=== PATIENT | male | born 1970 | race Caucasian/White ===

== ENCOUNTER 2021-03-13 10:24 | Inpatient (IN) | payer MEDICAID, SELFPAY ==
[~2021-03-13] VITALS: Ht 172.7 cm; Wt 101.6 kg
[2021-03-13 10:28] VITALS: BP 113/90
--- NOTE | 2021-03-13 10:30 | NUR ---
Patient ambulated to bed 12.
--- NOTE | 2021-03-13 11:16 | NUR ---
50 y/o M BIB self with c/c abscess x 3 months. Patient A&Ox4, ambulatory, reports perirectal abscess that has been recurring to right buttock region; reports pain 7/10, sharp/constant, non-radiating. Patient states recent visits discharged with ABX: Augmentin, Keflex, Bactrim that he been compliant with; states he completed ABX treatment with temporary relief. States Tylenol last night 8PM with minor relief. Denies fever, chills, N/V, recent injury. Chucks in place; pt in gown. Bed locked in lowest position, side rails x 1, call light in reach. PMH: NONE MEDS: NONE ALLERGY: IBUPROFEN
--- NOTE | 2021-03-13 11:40 | NUR ---
Pillow provided per request; pain 0/10 at this time.
--- NOTE | 2021-03-13 12:00 | NUR ---
AMA Shoemaker is evaluating patient at bedside.
[2021-03-13] MEDS ORDERED: NACL 0.9% 500 ML IV SCH (12:15)
--- NOTE | 2021-03-13 12:15 | NUR ---
Patient resting in supine position. property assessment monitor remains in place. Bed locked in lowest position, side rails x 1, call light in reach.
--- NOTE | 2021-03-13 12:27 | NUR ---
Dr. Parry is evaluating patient at bedside.
[2021-03-13] MEDS ORDERED: PIPERACILLIN/TAZOBACTAM 3.375 GM in DEXTROSE 5% 50 ML IV ONE (12:35)
[2021-03-13] MEDS ORDERED: PIPERACILLIN/TAZOBACTAM 3.375 GM VIAL IV ONE (12:40)
[2021-03-13 12:42] LABS: BASOPHILS # (AUTO) 0.3 K/uL (0.00-0.22); BASOPHILS % (AUTO) 2.8 % (0.0-2.0); EOSINOPHILS # (AUTO) 0.3 K/uL (0-0.4); EOSINOPHILS % (AUTO) 2.7 % (0.0-4.0); HEMOGLOBIN 13.8 g/dL (12.0-18.0); LYMPHOCYTES # (AUTO) 2.1 K/uL (2.0-11.5); LYMPHOCYTES % (AUTO) 17.7 % (20.5-51.1); MEAN CORPUSCULAR HEMOGLOBIN 33 pg (27-31); MEAN CORPUSCULAR HGB CONC 34 g/dL (33-37); MEAN CORPUSCULAR VOLUME 98.1 fL (80-94); MONOCYTES % (AUTO) 8.1 % (1.7-9.3); NEUTROPHILS # (AUTO) 8.3 K/uL (1.8-7.7); NEUTROPHILS % (AUTO) 68.7 % (42.2-75.2); PLATELET COUNT (AUTO) 331 K/uL (140-450); RED BLOOD CELL COUNT(AUTO) 4.18 MIL/uL (4.20-6.10); RED CELL DISTRIBUTION WIDTH 13.8 % (11.6-13.7); WHITE BLOOD COUNT (AUTO) 12.1 K/uL (4.8-10.8)
--- NOTE | 2021-03-13 12:55 | NUR ---
CT consent form signature obtained.
--- NOTE | 2021-03-13 13:05 | NUR ---
Perirectal care performed; new pads applied per pt request. All needs met at this time.
[2021-03-13 13:14] LABS: ALBUMIN 3.6 g/dL (3.4-5.0); ANION GAP 13.9 (8-16); CARBON DIOXIDE 24.5 mmol/L (21-32); CREATININE 1.1 mg/dL (0.6-1.3); POTASSIUM 4.4 mmol/L (3.5-5.1); TOTAL BILIRUBIN 0.6 mg/dL (0.0-1.0)
--- NOTE | 2021-03-13 13:30 | NUR ---
Patient resting in supine position. foundry process engineer remains in place. Bed locked in lowest position, side rails x 1, call light in reach.
--- NOTE | 2021-03-13 13:46 | NUR ---
Patient assisted to CT via wheelchair.
[2021-03-13] MEDS ORDERED: NACL 0.9% 2,500 ML IV ONE (13:55)
--- NOTE | 2021-03-13 14:00 | NUR ---
Patient returned from CT via wheelchair, placed back onto color television console monitor and IVF continued.
--- NOTE | 2021-03-13 14:00 | NUR ---
1st 1000mL 0.9% NaCl bolus initiated at 1400.
--- NOTE | 2021-03-13 14:03 | NUR ---
[facility]m vazquez in [facility] - 03/13/21 at 1536 by CHAPITO Patient returned from CT via wheelchair, placed back onto cardiac exercise physiologist and IVF continued.
--- NOTE | 2021-03-13 14:05 | NUR ---
Urine sample collected; 325 mL urine discarded by urinal void.
--- NOTE | 2021-03-13 14:14 | NUR ---
Annika vigil swab and urine sample collected, walked to lab and handed to CPT Wolf.
--- NOTE | 2021-03-13 14:19 | NUR ---
Patient resting on left side in low-fowlers. refrigeration service technician remains in place. VSS. Bed locked in lowest position, side rails x 1, call light in reach.
[2021-03-13 14:32] LABS: BILIRUBIN,URINE NEGATIVE (NEGATIVE); BLOOD, URINE NEGATIVE (NEGATIVE); COLOR,URINE YELLOW (YELLOW); LEUKOCYTE ESTERASE ,URINE NEGATIVE (NEGATIVE); NITRITE, URINE NEGATIVE (NEGATIVE); UGLUCOSE TRACE (NEGATIVE)
[2021-03-13 14:39] LABS: APPEARANCE,URINE CLEAR (CLEAR)
--- NOTE | 2021-03-13 15:13 | NUR ---
Lab at bedside.
--- NOTE | 2021-03-13 15:30 | NUR ---
Patient resting comfortably on right side in semi-fowlers position. hand carver remains in place. RR 24 even/unlabored. Bed locked in lowest position, side rails x 1, call light in reach.
--- NOTE | 2021-03-13 15:43 | NUR ---
Attempted to contact CHARI Flores for report #[id number] extension without answer.
--- NOTE | 2021-03-13 15:54 | NUR ---
Made contact with Sandra via telephone, advised to recontact in 1 minute.
--- NOTE | 2021-03-13 15:58 | NUR ---
Report given to CHARI Flores advised of 5-10 minute ETA.
--- NOTE | 2021-03-13 16:05 | NUR ---
Patient will be admitted to care of Dr. herbert. Admited to Med-Surg. Will go to room 111-A Belongings list completed. Report to Matheus Flores.
[2021-03-13 16:15] VITALS: BP 121/63
--- NOTE | 2021-03-13 16:15 | NUR ---
PATIENT ARRIVED TO UNIT VIA RSANBORN ACCOMPANIED WITH EMT. ASSISTED TO TRANSFER PATIENT FROM [facility] TO BED. POSITIONED PATIENT COMFORTABLY TO LEFT SIDE. PATIENT IS ALERT AND ORIENTED TO NAME, PLACE, TIME, AND DATE ABLE TO MAKE NEED KNOWN AND SPEAKS JAPANESE. RESPIRATION EVEN AND UNLABORED ON ROOM AIR. NO SIGN OF ACUTE DISTRESS NOTED. IV 20G TO AC CLEAN AND INTACT NS RUNNING AT 250 ML/HR. SKIN IS WARM TO TOUCH, CLEAN AND DRY. PATIENT HAS RIGHT BUTTOCK CELLULITIS AND PICTURES TAKEN OF WOUND PER ED NURSE REPORT. PATIENT IS CONTINENT AND ABLE TO AMBULATE. VS TAKEN BP 121/63, RR 18, HR 97, TEMP 97.1, 97% RA. PATIENT DENIED ANY PAIN AT THIS TIME. ORIENTED PATIENT TO HIS ROOM, DEMONSTRATED PATIENT HOW TO USE THE CALL LIGHT, LIGHTS, TV, BED REMOTE. SAFETY MEASURES IN PLACE. BED IN LOW POSITION. CALL LIGHT WITHIN REACH. INSTRUCTED PATIENT TO USE THE CALL LIGHT FOR ANY ASSISTANCE AND PATIENT STATED OK.
--- NOTE | 2021-03-13 18:10 | NUR ---
PATIENT LAYING ON LEFT SIDE. PATIENT DENIES PAIN AT THIS TIME. NO DISTRESS NOTED. WILL CONTINUE TO MONITOR.
[2021-03-13] MEDS ORDERED: SODIUM PHOS / POTASSIUM PHOS 1 PKT PDR PO PRN (18:20)
[2021-03-13] MEDS ORDERED: ACETAMINOPHEN 325 MG TAB PO PRN (18:20)
[2021-03-13] MEDS ORDERED: ONDANSETRON 4 MG/2 ML VIAL IM/IVP PRN (18:20)
[2021-03-13] MEDS: NACL 0.9% 1,000 ML IV SCH (18:20)
[2021-03-13] MEDS ORDERED: MAG SULF 2000 MG/WATER PREMIX 50 ML IV PRN (18:20)
[2021-03-13] MEDS ORDERED: POTASSIUM CHLORIDE 40 MEQ, LIDOCAINE MPF 1% 25 MG in NACL 0.9% 250 ML IV PRN (18:20)
[2021-03-13] MEDS ORDERED: MORPHINE SULFATE 2 MG/ML SYR IVP PRN (18:20)
[2021-03-13] MEDS ORDERED: DEXTROSE 50% 50 ML SYR IVP PRN (18:20)
[2021-03-13] MEDS ORDERED: DOCUSATE SODIUM 100 MG GELCAP PO PRN (18:20)
[2021-03-13 18:34] LABS: MAGNESIUM 1.9 mg/dL (1.8-2.4); PHOSPHORUS 3.4 mg/dL (2.5-4.9)
--- NOTE | 2021-03-13 19:26 | NUR ---
ENDORSED TO [employer] PERSON NURSE FOR CONTINUITY OF CARE. PATIENT STABLE. NO DISTRESS NOTED. ALL SAFETY MEASURES IN PLACE.
[2021-03-13 20:00] VITALS: BP 123/65
--- NOTE | 2021-03-13 20:00 | NUR ---
PATIENT WAS RECEIVED IN BED ON ROOM AIR WITH NO SIGNS OF DISTRESS AT THIS TIME.
[2021-03-13] MEDS: BLOOD GLUCOSE MONITORING 1 DEV DEV FS SCH (20:49)
[2021-03-13] MEDS: INSULIN LISPRO SLIDING SCALE 100 UNITS/ML VIAL SUBQ PRN (20:52)
--- NOTE | 2021-03-13 21:00 | NUR ---
DUE IV MED WAS ADMINISTERED, PATIENT TOLERATED THE INFUSION.
[2021-03-13] MEDS: PIPERACILLIN/TAZOBACTAM 3.375 GM in DEXTROSE 5% 50 ML IV SCH (21:27)
--- NOTE | 2021-03-13 22:00 | NUR ---
WOUND DRESSING WAS CHANGED, TOLERATED WELL BY THE PATIENT, ABD PAD WAS APPLIED SECURED BY TAPES.
--- NOTE | 2021-03-14 00:01 | NUR ---
RN ANSWERED A CALL PATIENT WAS ALERT AND COHERENT DENIES PAIN, NOR DISCOMFORT.
[2021-03-14] MEDS: NACL 0.9% 1,000 ML IV SCH ×2 (01:06→13:54)
--- NOTE | 2021-03-14 03:15 | NUR ---
MISTY. REPORT FROM CHARI PEÑALOZA FOR CONTINUITY OF CARE. PATIENT RESTING IN BED SLEEPING BUT EASILY WAKES UP WHEN NAME CALLED, A/OX4. AMBULATORY TO THE BR. IV OF NS INFUSING ATG 40 ML/HR, RIGHT AC G20. RIGHT BUTTOCKS CELLULITIS WITH SOME SEROSANGUINEOUS DRAINAGE NOTED, REINFORCED DRESSING. ON IV ANTIBIOTIC. DENIES PAIN 0/10.
[2021-03-14 04:00] VITALS: BP 123/53
--- NOTE | 2021-03-14 04:00 | NUR ---
VS STABLE. NO COMPLAINT OF PAIN 0/10.
[2021-03-14] MEDS: PIPERACILLIN/TAZOBACTAM 3.375 GM in DEXTROSE 5% 50 ML IV SCH ×3 (04:48→21:54)
[2021-03-14 06:25] LABS: ANION GAP 11.7 (8-16); BASOPHILS # (AUTO) 0.1 K/uL (0.00-0.22); CARBON DIOXIDE 25.1 mmol/L (21-32); CREATININE 0.9 mg/dL (0.6-1.3); EOSINOPHILS # (AUTO) 0.6 K/uL (0-0.4); EOSINOPHILS % (AUTO) 5.6 % (0.0-4.0); HEMATOCRIT 36.5 % (36-52); HEMOGLOBIN 12.8 g/dL (12.0-18.0); LYMPHOCYTES # (AUTO) 2.5 K/uL (2.0-11.5); LYMPHOCYTES % (AUTO) 25.4 % (20.5-51.1); MEAN CORPUSCULAR HEMOGLOBIN 35 pg (27-31); MEAN CORPUSCULAR HGB CONC 35 g/dL (33-37); MEAN CORPUSCULAR VOLUME 99.5 fL (80-94); MONOCYTES # (AUTO) 0.8 K/uL (0.8-1.0); MONOCYTES % (AUTO) 8.3 % (1.7-9.3); NEUTROPHILS % (AUTO) 59.7 % (42.2-75.2); PLATELET COUNT (AUTO) 298 K/uL (140-450); POTASSIUM 3.8 mmol/L (3.5-5.1); RED BLOOD CELL COUNT(AUTO) 3.67 MIL/uL (4.20-6.10); RED CELL DISTRIBUTION WIDTH 13.8 % (11.6-13.7)
[2021-03-14] MEDS: BLOOD GLUCOSE MONITORING 1 DEV DEV FS SCH ×4 (06:36→21:00)
--- NOTE | 2021-03-14 07:20 | NUR ---
ENDORSED TO AM SHIFT NURSE FOR CONTINUITY OF CARE.
[2021-03-14 08:00] VITALS: BP 124/58
--- NOTE | 2021-03-14 08:45 | NUR ---
Patient already ate about 75% of breakfast. Informed patient of physician order to eat nothing by mouth except medications d/t possible surgery. Patient verbalized understanding and agree with care plan.
[2021-03-14] MEDS: PANTOPRAZOLE 40 MG TABEC PO SCH (09:03)
--- NOTE | 2021-03-14 09:22 | NUR ---
PATIENT HAS BEEN SCREENED AND CATEGORIZED LOW NUTRITION RISK. PATIENT WILL BE SEEN WITHIN 7 DAYS OF ADMISSION. 03/20/[address]
[2021-03-14] MEDS ORDERED: VANCOMYCIN PER PHARMACY MC PRN (09:45)
--- NOTE | 2021-03-14 10:30 | NUR ---
Wound care provided with Dr Dumont at bedside. Old dressing from right buttock abscess removed (moderately saturated with serosanguineous discharge). Site cleansed with NS, pat dry, obtained swab for culture, and covered with gauze and abd pad. Pt tolerated procedure well.
[2021-03-14] MEDS: VANCOMYCIN 1,000 MG in NACL 0.9% 250 ML IV SCH ×2 (11:40→18:45)
[2021-03-14] MEDS: NICOTINE TRANSD SYS 14 MG/24 HR PATCH TD SCH (11:41)
[2021-03-14] MEDS ORDERED: MAG SULF 2000 MG/WATER PREMIX 50 ML IV PRN (12:10)
[2021-03-14] MEDS ORDERED: POTASSIUM CHLORIDE 10 MEQ TABER PO PRN (12:10)
[2021-03-14] MEDS: HYDROcodone/APAP 5/325 MG 1 TAB TAB PO PRN ×2 (13:17→21:50)
[2021-03-14 16:00] VITALS: BP 133/73
--- NOTE | 2021-03-14 19:30 | NUR ---
RECEIVED REPORT FROM JUSTINE RN DAYSHIFT NURSE AT BEDSIDE FOR CONTINUITY OF CARE,PT IN STABLE CONDITION.
[2021-03-14 20:00] VITALS: BP 128/67
--- NOTE | 2021-03-14 20:15 | NUR ---
PT LYING IN BED AOX4 ON ROOM AIR HE HAS A RAC 20 GUAGE RUNNING NORMAL SALINE AT 40MLS/HR. PT LYING ON LEFT SIDE, HE HAS BLEEDING BANDAGE ON RIGHT BUTTOCK. V/S FOLLOWS: T 97.3 P 85 R 20 B/P 128/67 02 97% ON ROOM AIR. ALL UNIVERSAL PRECAUTIONS IN PLACE.
--- NOTE | 2021-03-14 20:30 | NUR ---
SURGEON OH AT BEDSIDE, TO CONSULT WITH PT REGARDING I AND D SURGERY FOR THE AM. QUESTIONS AND CONCERNS ADDRESSED BY SURGEON, PT SIGNED CONSENT FOR SURGERY.
--- NOTE | 2021-03-14 20:45 | NUR ---
MD WEBSTER INFECTIOUS DISEASE AT BEDSIDE FOR CONSULT. QUESTIONS AND CONCERNS ANSWERED BY MD . ALL UNIVERSAL FALLS PRECAUTIONS IN PLACE.
--- NOTE | 2021-03-14 21:00 | NUR ---
DUE HEPARIN WAS HELD DUE TO SURGERY IN THE AM. PT FINGERSTICK IS 194, HE WAS GIVEN 2 UNITS OF HUMALOG PER S/S. ZOSYN 3.375GM WAS HUNG AND RUNNING ORDERED AT 100MLS/HR. ALL UNIVERSAL PRECAUTIONS IN PLACE.
--- NOTE | 2021-03-14 22:00 | NUR ---
PT C/O OF MODERATE PAIN, HE WAS GIVEN 1 TAB OF NORCO 5/325. ALSO WOUND CARE DONE, PT WOUND HAS SOME GROVER BLEEDING AND SEROSANGUINEOUS DRAINAGE. AREA AROUND CELLULITIS AND ABSCESS IS FIRM. WOUND WAS CLEANSED AND REDRESSED.
[2021-03-14] MEDS: INSULIN LISPRO SLIDING SCALE 100 UNITS/ML VIAL SUBQ PRN (22:19)
--- NOTE | 2021-03-14 23:00 | NUR ---
NEW BAG OF NORMAL SALINE HUNG AND RUNNING ORDERED. PT ABLE TO AMBULATE TO TOILET AND BACK. DRESSING ON BUTTOCK DRY AND INTACT. ALL UNIVERSAL PRECAUTIONS IN PLACE.
[2021-03-15] MEDS: NACL 0.9% 1,000 ML IV SCH ×3 (01:19→19:30)
--- NOTE | 2021-03-15 04:00 | NUR ---
PT IN BED RESTING V/S FOLLOWS: T 98.1 P 88 R 20 B/P 127/72 02 97 % ON ROOM AIR. ALL UNIVERSAL FALLS IN PLACE. N/S RUNNING AT 40MLS/HR.
[2021-03-15] MEDS: VANCOMYCIN 1,000 MG in NACL 0.9% 250 ML IV SCH ×3 (04:01→21:10)
--- NOTE | 2021-03-15 05:30 | NUR ---
CRYSTAL HUNG AND RUNNING ORDERED. NO C/O VOICED.
[2021-03-15 06:21] LABS: BASOPHILS # (AUTO) 0.1 K/uL (0.00-0.22); EOSINOPHILS # (AUTO) 0.5 K/uL (0-0.4); EOSINOPHILS % (AUTO) 5.1 % (0.0-4.0); HEMATOCRIT 37.1 % (36-52); HEMOGLOBIN 13.1 g/dL (12.0-18.0); LYMPHOCYTES # (AUTO) 2.3 K/uL (2.0-11.5); LYMPHOCYTES % (AUTO) 22.9 % (20.5-51.1); MEAN CORPUSCULAR HEMOGLOBIN 35 pg (27-31); MEAN CORPUSCULAR HGB CONC 35 g/dL (33-37); MEAN CORPUSCULAR VOLUME 97.8 fL (80-94); MONOCYTES # (AUTO) 0.8 K/uL (0.8-1.0); MONOCYTES % (AUTO) 8.2 % (1.7-9.3); NEUTROPHILS # (AUTO) 6.2 K/uL (1.8-7.7); NEUTROPHILS % (AUTO) 62.8 % (42.2-75.2); PLATELET COUNT (AUTO) 298 K/uL (140-450); RED BLOOD CELL COUNT(AUTO) 3.79 MIL/uL (4.20-6.10); RED CELL DISTRIBUTION WIDTH 13.2 % (11.6-13.7); WHITE BLOOD COUNT (AUTO) 9.8 K/uL (4.8-10.8)
[2021-03-15] MEDS: BLOOD GLUCOSE MONITORING 1 DEV DEV FS SCH ×4 (06:29→21:15)
[2021-03-15] MEDS: PIPERACILLIN/TAZOBACTAM 3.375 GM in DEXTROSE 5% 50 ML IV SCH ×3 (06:30→22:56)
--- NOTE | 2021-03-15 06:30 | NUR ---
FINGERSTICK IS 128 NO HUMALOG COVERAGE NEEDED.
[2021-03-15 06:32] LABS: ANION GAP 11.9 (8-16); CARBON DIOXIDE 25.8 mmol/L (21-32); CREATININE 0.8 mg/dL (0.6-1.3); POTASSIUM 3.7 mmol/L (3.5-5.1)
--- NOTE | 2021-03-15 07:21 | NUR ---
PT ENDORSED BY CORE WINDING OPERATOR NURSE FOR CONTINUITY OF CARE. POC DISCUSSED. PT RESTING IN BED WITH NO SIGNS OF ACUTE DISTRESS. PT ON ROOM AIR WITH CHEST RISING AND FALLING EVEN AND UNLABORED. PT HAS A SACRAL WOUND AND SURGERY SCHEDULED AT 0730. CONSENT AND PREOP CHECKLIST COMPLETED BY CORE WINDING OPERATOR NURSE. VITAL SIGNS WNL. ALL SAFETY MEASURES IN PLACE, CALL LIGHT WITHIN REACH. WILL CONTINUE TO MONITOR.
[2021-03-15] MEDS ORDERED: fentaNYL citrate 0.05 MG/ML VIAL ONE (07:23)
[2021-03-15] MEDS ORDERED: diphenhydrAMINE 50 MG/ML VIAL IVP PRN (07:40)
[2021-03-15] MEDS ORDERED: BLOOD GLUCOSE MONITORING 1 DEV DEV FS ONE (07:40)
[2021-03-15] MEDS ORDERED: ONDANSETRON 4 MG/2 ML VIAL IVP PRN (07:40)
[2021-03-15] MEDS ORDERED: fentaNYL citrate 0.05 MG/ML VIAL IVP PRN (07:40)
[2021-03-15] MEDS ORDERED: MEPERIDINE 25 MG/ML SYR IVP PRN (07:40)
--- NOTE | 2021-03-15 07:41 | NUR ---
PT PICKED UP BY OR NURSES IN [facility]. LAST VITAL SIGNS AND BLOOD SUGAR REPORTED. PT IN STABLE CONDITION.
[2021-03-15] MEDS ORDERED: BUPIVACAINE-MPF/EPI 0.25% 30 ML VIAL INJ ONE (07:49)
[2021-03-15] MEDS ORDERED: LIDOCAINE 1% 500 MG/50 ML VIAL ONE (07:49)
[2021-03-15] MEDS ORDERED: HYDROGEN PEROXIDE 3% 240 ML BTL TP ONE (07:49)
[2021-03-15] MEDS ORDERED: SEVOFLURANE 250 ML BTL INH ONE (07:58)
[2021-03-15 08:00] VITALS: BP 127/72
[2021-03-15] MEDS ORDERED: MEPERIDINE 25 MG/ML SYR ONE (08:18)
[2021-03-15] MEDS: PANTOPRAZOLE 40 MG TABEC PO SCH (08:43)
[2021-03-15] MEDS ORDERED: GLYCOPYRROLATE 0.2 MG/ML VIAL ONE (08:56)
[2021-03-15] MEDS ORDERED: ROCURONIUM 50 MG/5 ML VIAL IV ONE (08:56)
[2021-03-15] MEDS ORDERED: SUCCINYLCHOLINE CHLORIDE 200 MG/10 ML VIAL IVP ONE (08:56)
[2021-03-15] MEDS ORDERED: LIDOCAINE MPF 2% 100 MG/5 ML VIAL INJ ONE (08:56)
[2021-03-15] MEDS ORDERED: PROPOFOL 200 MG/20 ML VIAL IV ONE (08:56)
[2021-03-15] MEDS ORDERED: NEOSTIGMINE 1:1000 10 MG/10 ML VIAL ONE (08:57)
[2021-03-15] MEDS: NICOTINE TRANSD SYS 14 MG/24 HR PATCH TD SCH ×4 (09:00→15:03)
[2021-03-15] MEDS ORDERED: HYDROcodone/APAP 5/325 MG 1 TAB TAB PO PRN (09:30)
[2021-03-15] MEDS ORDERED: ONDANSETRON 4 MG/2 ML VIAL IV PRN (09:30)
[2021-03-15] MEDS ORDERED: MORPHINE SULFATE 4 MG/ML SYR IV PRN (09:30)
[2021-03-15] MEDS ORDERED: MORPHINE SULFATE 2 MG/ML SYR IVP PRN (09:30)
--- NOTE | 2021-03-15 09:45 | NUR ---
PT RETURNED FROM OR ON [facility] IN STABLE CONDITION. PT SACRAL DRESSING IS INTACT, WITH MINIMAL BLOOD. PT REQUESTED CHICKEN BROTH AND SUGAR FREE JELLO. PT VITAL SIGNS 140/66, 77, 98%, 18, 97.3. PT RATED PAIN 6/10, WILL MEDICATED PER MD ORDER. ALL SAFETY MEASURES IN PLACE, CALL LIGHT WITHIN REACH. WILL CONTINUE TO MONITOR.
--- NOTE | 2021-03-15 10:05 | NUR ---
PT COMPLAINED OF PAIN 6/10 MEDICATED PER MD ORDER. PT EDUCATION PROVIDED. PT VERBALIZED UNDERSTANDING. ALL SAFETY MEASURES IN PLACE, CALL LIGHT WITHIN REACH. WILL CONTINUE TO MONITOR.
--- NOTE | 2021-03-15 11:26 | NUR ---
PHARMACY CALLED, HOLD VANCO UNTIL VANCO TROUGH IS DRAWN. LAB IS BACKED UP. WILL HANG VANCO AFTER LAB IS DRAWN.
--- NOTE | 2021-03-15 12:00 | NUR ---
JEREMY TROUGH DRAWN, JEREMY PALACIOS. PT IS STABLE
--- NOTE | 2021-03-15 13:34 | NUR ---
DC PLANNING: PT HAS ORDER FOR VISITING NURSE HOME HEALTH, PT HAS [facility], AND UN ABLE TO FIND HOME HEALTH. CALLED [facility], SPOKE WITH KATARZYNA STATED IT WILL BE COVERED WITH [facility] JUST TO FAX AND WILL CONTACT THE PATIENT. OTHER POPE IF NOT COVERED INITIAL VISIT WILL BE 125$ AND 90$ FOR EACH VISIT. SPOKE WITH PATIENT STATED HE HAS NO ONE TO HELP HIM ,HE WILL TRY TO DO IT BY HIMSELF ,IF NOT WILL PAY. CM TO FOLLOW
--- NOTE | 2021-03-15 13:38 | NUR ---
ABElio PALACIOS, PT IS STABLE. CALL LIGHT WITHIN REACH. SAFETY MEASURES IN PLACE. WILL CONTINUE TO MONITOR.
--- NOTE | 2021-03-15 14:12 | NUR ---
DRESSING ASSESSED, AREA SURROUNDING DRESSING CLEANED. DRESSING FROM SURGEON REINFORCED WITH 4X4 GAUZE AND TAPE. PT CLEANED UP. PT IN STABLE CONDITION STATED THAT THE PAIN IS STILL TOLERABLE. ALL SAFETY MEASURES IN PLACE, CALL LIGHT WITHIN REACH.WILL CONTINUE TO MONITOR.
[2021-03-15 16:00] VITALS: BP 112/59
[2021-03-15] MEDS: INSULIN LISPRO SLIDING SCALE 100 UNITS/ML VIAL SUBQ PRN ×2 (16:19→21:16)
[2021-03-15] MEDS: metFORMIN 850 MG TAB PO SCH (16:24)
--- NOTE | 2021-03-15 16:29 | NUR ---
BLOOD GLUCOSE IS 188, 2 UNITS OF INSULIN COVERAGE. ISHA MEDICATION ADMINISTRATION. PT EDUCATION PROVIDED. EDUCATED ON S/S OF HYPOGLYCEMIA. PT VERBALIZED UNDERSTANDING. ALL QUESTIONS ANSWERED. PT IS RESTING WITH NO S/S OF ACUTE DISTRESS. CALL LIGHT WITHIN REACH. WILL CONTINUE TO MONITOR.
--- NOTE | 2021-03-15 17:35 | NUR ---
PT IS STABLE IN BED WITH NO SIGNS OF ACUTE DISTRESS, ALL SAFETY MEASURES IN PLACE. CALL LIGHT WITHIN REACH. WILL CONTINUE TO MONITOR.
--- NOTE | 2021-03-15 18:41 | NUR ---
PT ASLEEP IN BED WITH NO S/S OF ACUTE DISTRESS. ALL SAFETY MEASURES IN PLACE, CALL LIGHT WITHIN REACH. WILL CONTINUE TO MONITOR.
--- NOTE | 2021-03-15 19:06 | NUR ---
PT ENDORSED TO AIRBRUSH PAINTER NURSE FOR CONTINUITY OF CARE. POC DISCUSSED
--- NOTE | 2021-03-15 19:07 | NUR ---
RECEIVED PATIENT FROM AM NURSE FOR CONTINUITY OF CARE. PATIENT IS RESTING IN BED, A/A/O X4. RESPIRATORY EVEN AND UNLABORED, ON ROOM AIR, NO SIGN OF DISTRESS NOTED. SKIN WARM, DRY, NON DIAPHORETIC. INCISION AND DRAINAGE OF THE RIGHT BUTTOCK PERIANAL ABSCESS ON 03/15/2021, WOUND IS PACKED AND DRESSED, DRESSING IS INTACT, CLEAN AND DRY. IV ON RIGHT AC 20G, INTACT AND PATENT, IS INFUSING FLUID ORDER. PATIENT DENIES ANY PAIN OR DISCOMFORT AT THIS TIME. ABLE TO MAKE NEED KNOWN. PLAN OF CARE DISCUSSED, PATIENT VERBALIZED UNDERSTANDING. CALL LIGHT WITHIN REACH. WILL CONTINUE TO MONITOR.
[2021-03-15 20:00] VITALS: BP 109/67
--- NOTE | 2021-03-15 21:15 | NUR ---
BLOOD SUGAR CHECK 179, 2UNITS INSULIN GIVEN WITH EDUCATION. PATIENT VERBALIZED UNDERSTANDING. VANCOMYCIN IVPB GIVEN LATE DUE TO PREVIOUS DOSE WAS GIVEN LATE PER AM NURSE. PATIENT TOLERATED WELL. CALL LIGHT WITHIN REACH. WILL CONTINUE TO MONITOR.
--- NOTE | 2021-03-15 22:09 | NUR ---
PATIENT COMPLAINS PAIN 7/10 ON HIS SURGICAL WOUND OF RIGHT BUTTOCK/PERIANAL. PRN MEDICATION GIVEN WITH EDUCATION. PATIENT VERBALIZED UNDERSTANDING. PATIENT TOLERATED WELL. CALL LIGHT WITHIN REACH. WILL CONTINUE TO MONITOR.
--- NOTE | 2021-03-15 23:09 | NUR ---
PAIN REASSESSMENT. PATIENT IS SLEEPING, CHEST RISE AND FALL, NO SIGN OF DISTRESS NOTED. CALL LIGHT WITHIN REACH. WILL CONTINUE TO MONITOR.
--- NOTE | 2021-03-16 03:04 | NUR ---
WOUND CARE IN RIGHT BUTTOCK/PERIANAL. DRESSING INTACT, CLEAN AND MINIMAL DRAINAGE NOTED. PATIENT DENIES ANY PAIN AT THIS TIME. DAILY PACKING WOUND WITH 4X4 GAUZE START POD#2. EDUCATE PATIENT HYGIENE, PATIENT VERBALIZED UNDERSTANDING. NO SIGN OF DISTRESS NOTED. CALL LIGHT WITHIN REACH. WILL CONTINUE TO MONITOR.
[2021-03-16 04:00] VITALS: BP 120/67
--- NOTE | 2021-03-16 04:00 | NUR ---
VITAL SIGN WITHIN NORMAL LIMIT. PATIENT IS RESTING IN BED, AROUSABLE TO VOICE. NO SIGN OF DISTRESS NOTED. CALL LIGHT WITHIN REACH. WILL CONTINUE TO MONITOR.
[2021-03-16] MEDS: VANCOMYCIN 1,000 MG in NACL 0.9% 250 ML IV SCH (04:19)
[2021-03-16] MEDS: NACL 0.9% 1,000 ML IV SCH ×2 (05:09→18:37)
--- NOTE | 2021-03-16 06:00 | NUR ---
SCHEDULE ANTIBIOTIC GIVEN WITH EDUCATION. PATIENT VERBALIZED UNDERSTANDING. NO SIGN OF DISTRESS NOTED. CALL LIGHT WITHIN REACH. WILL CONTINUE TO MONITOR.
[2021-03-16 06:10] LABS: BASOPHILS # (AUTO) 0.1 K/uL (0.00-0.22); BASOPHILS % (AUTO) 0.8 % (0.0-2.0); EOSINOPHILS # (AUTO) 0.4 K/uL (0-0.4); EOSINOPHILS % (AUTO) 4.3 % (0.0-4.0); HEMATOCRIT 35.3 % (36-52); HEMOGLOBIN 12.1 g/dL (12.0-18.0); LYMPHOCYTES # (AUTO) 2.6 K/uL (2.0-11.5); LYMPHOCYTES % (AUTO) 26.3 % (20.5-51.1); MEAN CORPUSCULAR HEMOGLOBIN 34 pg (27-31); MEAN CORPUSCULAR HGB CONC 34 g/dL (33-37); MEAN CORPUSCULAR VOLUME 99.8 fL (80-94); MONOCYTES # (AUTO) 0.8 K/uL (0.8-1.0); MONOCYTES % (AUTO) 8.2 % (1.7-9.3); NEUTROPHILS % (AUTO) 60.4 % (42.2-75.2); PLATELET COUNT (AUTO) 313 K/uL (140-450); RED BLOOD CELL COUNT(AUTO) 3.54 MIL/uL (4.20-6.10); RED CELL DISTRIBUTION WIDTH 13.4 % (11.6-13.7); WHITE BLOOD COUNT (AUTO) 9.9 K/uL (4.8-10.8)
[2021-03-16] MEDS: PIPERACILLIN/TAZOBACTAM 3.375 GM in DEXTROSE 5% 50 ML IV SCH ×2 (06:13→12:51)
[2021-03-16] MEDS: BLOOD GLUCOSE MONITORING 1 DEV DEV FS SCH ×4 (06:31→21:00)
--- NOTE | 2021-03-16 06:31 | NUR ---
BLOOD SUGAR CHECK 132, NO INSULIN GIVEN TO COVER. PATIENT IS STABLE. NO SIGN OF DISTRESS. CALL LIGHT WITHIN REACH. WILL CONTINUE TO MONITOR.
[2021-03-16 07:08] LABS: ANION GAP 9.1 (8-16); CARBON DIOXIDE 27.5 mmol/L (21-32); CREATININE 1.2 mg/dL (0.6-1.3); POTASSIUM 3.6 mmol/L (3.5-5.1)
--- NOTE | 2021-03-16 07:15 | NUR ---
ENDORSED PATIENT TO AM NURSE FOR CONTINUITY OF CARE. PATIENT STABLE.
--- NOTE | 2021-03-16 07:15 | NUR ---
RECEIVED BEDSIDE REPORT FROM STORAGE ADMINISTRATOR NURSE. PATIENT IS ASLEEP RESPIRATION EVEN UNLABORED ON ROOM AIR. NO DISTRESS NOTED. SKIN IS WARM AND DRY. WOUND DRESSING NOTED WITH DRAINAGE. IV PATENT AND INTACT. PLAN OF CARE WAS DISCUSSED, ALL SAFETY MEASURES IN PLACE. BED IS AT LOW POSITION. CALL LIGHT WITHIN REACH WILL CONTINUE TO MONITOR.
[2021-03-16] MEDS: metFORMIN 850 MG TAB PO SCH ×2 (08:17→17:02)
[2021-03-16] MEDS: PANTOPRAZOLE 40 MG TABEC PO SCH (08:17)
--- NOTE | 2021-03-16 08:25 | NUR ---
ALL SCHEDULED MEDS WERE GIVEN PER ORDER. PATIENT WANTS ONE OF THE BEDSIDE RAILS DOWN, EDUCATED REGARDING THE PURPOSE OF SIDE RAILS, PT VERBALIZES UNDERSTANDING BUT STILL REFUSED X2. WILL CONTINUE TO MONITOR
[2021-03-16] MEDS: LACTATED RINGERS 1,000 ML IV SCH ×2 (08:40→17:00)
[2021-03-16] MEDS: INSULIN LISPRO SLIDING SCALE 100 UNITS/ML VIAL SUBQ PRN (11:41)
--- NOTE | 2021-03-16 11:58 | NUR ---
PATIENT COMPLAINS OF RIGHT BUTTOCK PAIN 11/15. OFFERED NORCO PER PATIENT NORCO DOESN'T WORK WELL FOR HIM. PRN MORPHINE 2MG GIVEN PER ORDER. WILL CONTINUE TO MONITOR
--- NOTE | 2021-03-16 13:00 | NUR ---
DRAINAGE NOTED ON THE WOUND DRESSING, APPLIED REINFORCEMENT.
--- NOTE | 2021-03-16 15:09 | NUR ---
CHECKED ON PATIENT. PATIENT IS AWAKE, WATCHING TV, NO DISTRESS NOTED. WILL CONTINUE TO MONITOR
[2021-03-16 16:00] VITALS: BP 119/75
[2021-03-16] MEDS ORDERED: VANCOMYCIN 1,000 MG in NACL 0.9% 250 ML IV SCH (16:00)
--- NOTE | 2021-03-16 16:30 | NUR ---
CHECKED ON PATIENT BLOOD SUGAR. PT BLOOD SUGAR 146 NO INSULIN NEEDED AT THIS TIME
--- NOTE | 2021-03-16 17:00 | NUR ---
SCHEDULED MEDS GIVEN PER ORDER, WILL CONTINUE TO MONITOR
--- NOTE | 2021-03-16 19:30 | NUR ---
RECEIVED REPORT FROM ALPA RN DAYSHIFT NURSE AT BEDSIDE FOR CONTINUITY OF CARE, PT IN STABLE CONDITION.
--- NOTE | 2021-03-16 19:32 | NUR ---
ENDORSED PATIENT TO SKELP PROCESSOR NURSE FOR CONTINUITY OF CARE
[2021-03-16 20:00] VITALS: BP 113/64
--- NOTE | 2021-03-16 20:00 | NUR ---
PT LYING IN BED ON LEFT SIDE, HE HAS A R HAND 22 GUAGE RUNNING NORMAL SALINE AT 100MLS/HR. PT HAS DRESSING ON RIGHT BUTTOCK WITH MODERATE AMOUNT OF SEROSANGUINEOUS DRAINAGE. WILL CHANGE DRESSING LATER ACCORDING TO ORDER. PT DENIES PAIN AT THIS TIME. ALL UNIVERSAL FALLS PRECAUTIONS IN PLACE. V/S FOLLOWS: T 98.2 P 80 R 20 B/P 122/71 02 20.
--- NOTE | 2021-03-16 21:30 | NUR ---
PT GIVEN DUE MEDS OF HEPARIN SQ, EDUCATION REGARDING MEDICATION AND SIDE EFFECTS PROVIDED . PT VERBALIZED UNDERSTANDING. PT ALSO GIVEN ORDERED, ZOSYN HUNG AND RUNNING ORDERED. EDUCTION REGARDING MEDICATION REINFORCED, AGAIN PT VERBALIZED UNDERSTANDING. PT FINGERSTICK IS 140, NO HUMALOG COVERAGE NEEDED, EDUCATION REGARDING DIABETES PROVIDED. PT VERBALIZED UNDERSTANDING. ALL UNIVERSAL PRECAUTIONS IN PLACE.
[2021-03-17] MEDS: LACTATED RINGERS 1,000 ML IV SCH ×3 (01:20→18:00)
--- NOTE | 2021-03-17 02:00 | NUR ---
ROUNDS DONE PT IN BED NORMAL SALINE RUNNING ORDERED. ALL ORDERED PRECAUTIONS IN PLACE.
[2021-03-17] MEDS: PIPERACILLIN/TAZOBACTAM 3.375 GM in DEXTROSE 5% 50 ML IV SCH ×4 (03:13→21:38)
[2021-03-17] MEDS: NACL 0.9% 1,000 ML IV SCH ×3 (03:14→21:03)
[2021-03-17 04:00] VITALS: BP 122/71
[2021-03-17] MEDS: HYDROmorphone 1 MG/ML AMP IVP PRN (06:22)
[2021-03-17] MEDS: BLOOD GLUCOSE MONITORING 1 DEV DEV FS SCH ×4 (06:59→21:54)
[2021-03-17 07:09] VITALS: BP 118/68
[2021-03-17 07:27] LABS: BASOPHILS # (AUTO) 0.1 K/uL (0.00-0.22); BASOPHILS % (AUTO) 1.1 % (0.0-2.0); EOSINOPHILS # (AUTO) 0.7 K/uL (0-0.4); HEMATOCRIT 33.1 % (36-52); HEMOGLOBIN 11.5 g/dL (12.0-18.0); LYMPHOCYTES # (AUTO) 2.2 K/uL (2.0-11.5); LYMPHOCYTES % (AUTO) 25.9 % (20.5-51.1); MEAN CORPUSCULAR HEMOGLOBIN 34 pg (27-31); MEAN CORPUSCULAR HGB CONC 35 g/dL (33-37); MEAN CORPUSCULAR VOLUME 98.3 fL (80-94); MONOCYTES # (AUTO) 0.7 K/uL (0.8-1.0); MONOCYTES % (AUTO) 8.5 % (1.7-9.3); NEUTROPHILS # (AUTO) 4.8 K/uL (1.8-7.7); NEUTROPHILS % (AUTO) 56.5 % (42.2-75.2); PLATELET COUNT (AUTO) 285 K/uL (140-450); RED BLOOD CELL COUNT(AUTO) 3.36 MIL/uL (4.20-6.10); RED CELL DISTRIBUTION WIDTH 13.6 % (11.6-13.7); WHITE BLOOD COUNT (AUTO) 8.6 K/uL (4.8-10.8)
[2021-03-17 07:32] LABS: ANION GAP 9.4 (8-16); CARBON DIOXIDE 26.4 mmol/L (21-32); CREATININE 1.2 mg/dL (0.6-1.3); POTASSIUM 3.8 mmol/L (3.5-5.1)
[2021-03-17] MEDS: PANTOPRAZOLE 40 MG TABEC PO SCH (09:11)
[2021-03-17] MEDS: metFORMIN 850 MG TAB PO SCH ×2 (09:11→16:25)
[2021-03-17] MEDS: NICOTINE TRANSD SYS 14 MG/24 HR PATCH TD SCH (09:12)
[2021-03-17 10:02] VITALS: BP 115/49
[2021-03-17] MEDS: INSULIN LISPRO SLIDING SCALE 100 UNITS/ML VIAL SUBQ PRN ×2 (11:57→21:54)
[2021-03-17 16:53] VITALS: BP 124/76
--- NOTE | 2021-03-17 20:00 | NUR ---
PATIENT WAS RECEIVED IN BED AWAKE AND ALERT WITH NO S/S OF ACUTE DISTRESS AT THIS TIME.
--- NOTE | 2021-03-17 21:00 | NUR ---
DUE IV MEDICATION AND SQ HEPARIN INJECTION WAS GIVEN, BS WAS CHECKED =161 MG/DL, UNITS REGU;AR INSULIN WAS GIVEN SQ TOLERATED WELL BY THE PATIENT.
--- NOTE | 2021-03-17 22:00 | NUR ---
WOUND DRESSING WAS CHANGED WITH MINIMAL BLOODY DRAINAGE.
--- NOTE | 2021-03-17 23:30 | NUR ---
PATIENT WOUND DRESSING WAS CHANGED WITH BLOODY DISCHARGES MINIMAL AMOUNT, PRESSURE DRESSING WAS APPLIED ASEPTICALLY.
[2021-03-17 23:51] VITALS: BP 109/109
--- NOTE | 2021-03-18 00:24 | NUR ---
PATIENT MADE HIS MIDNIGHT ROUNDING PATIENT WAS CALMLY ASLEEP
[2021-03-18] MEDS: LACTATED RINGERS 1,000 ML IV SCH ×3 (02:20→19:00)
[2021-03-18] MEDS: PIPERACILLIN/TAZOBACTAM 3.375 GM in DEXTROSE 5% 50 ML IV SCH ×3 (04:16→22:54)
--- NOTE | 2021-03-18 05:00 | NUR ---
ZOSYN IV ATB WAS GIVEN 40 MINUTES EARLY THAN DUE TIME, TOLERATED WELL
--- NOTE | 2021-03-18 05:00 | NUR ---
PATIENT C/O PAIN 05/18, MEDICATED WITH DILAUDID 1 MG IV PUSH, TOLERATED WELL BY THE PATIENT, V/S WAS TAKEN WNL.
[2021-03-18] MEDS: HYDROmorphone 1 MG/ML AMP IVP PRN ×2 (06:04→10:32)
[2021-03-18] MEDS: BLOOD GLUCOSE MONITORING 1 DEV DEV FS SCH ×4 (06:22→21:00)
--- NOTE | 2021-03-18 06:25 | NUR ---
BS= 102 MG/DL NO INSULIN COVERAGE NEEDED.
[2021-03-18 07:08] LABS: BASOPHILS # (AUTO) 0.1 K/uL (0.00-0.22); EOSINOPHILS # (AUTO) 0.6 K/uL (0-0.4); EOSINOPHILS % (AUTO) 7.6 % (0.0-4.0); HEMATOCRIT 31.9 % (36-52); HEMOGLOBIN 11.1 g/dL (12.0-18.0); LYMPHOCYTES # (AUTO) 2.5 K/uL (2.0-11.5); LYMPHOCYTES % (AUTO) 31.9 % (20.5-51.1); MEAN CORPUSCULAR HEMOGLOBIN 34 pg (27-31); MEAN CORPUSCULAR HGB CONC 35 g/dL (33-37); MEAN CORPUSCULAR VOLUME 99.4 fL (80-94); MONOCYTES # (AUTO) 0.7 K/uL (0.8-1.0); MONOCYTES % (AUTO) 8.5 % (1.7-9.3); PLATELET COUNT (AUTO) 300 K/uL (140-450); RED BLOOD CELL COUNT(AUTO) 3.21 MIL/uL (4.20-6.10); RED CELL DISTRIBUTION WIDTH 13.5 % (11.6-13.7); WHITE BLOOD COUNT (AUTO) 7.9 K/uL (4.8-10.8)
--- NOTE | 2021-03-18 07:12 | NUR ---
REPORTS WERE ALL GIVEN, TRANSFER OF CARE ENDORSED.
--- NOTE | 2021-03-18 07:15 | NUR ---
RECEIVED BEDSIDE REPORT FROM BROOM MACHINE OPERATOR NURSE. PATIENT IS ASLEEP RESPIRATION EVEN UNLABORED ON ROOM AIR. NO DISTRESS NOTED. SKIN IS WARM AND DRY. WOUND DRESSING NOTED WITH DRAINAGE. PATIENT REQUESTED DRESSING TO BE CHANGE. WILL CHANGE AFTER REPORT. IV PATENT AND INTACT. PLAN OF CARE WAS DISCUSSED, ALL SAFETY MEASURES IN PLACE. BED IS AT LOW POSITION. CALL LIGHT WITHIN REACH WILL CONTINUE TO MONITOR.
[2021-03-18 07:21] LABS: ANION GAP 12.8 (8-16); CARBON DIOXIDE 26.8 mmol/L (21-32); CREATININE 1.1 mg/dL (0.6-1.3); POTASSIUM 3.6 mmol/L (3.5-5.1)
[2021-03-18 08:00] VITALS: BP 127/70
[2021-03-18] MEDS: NACL 0.9% 1,000 ML IV SCH ×2 (08:26→16:38)
[2021-03-18] MEDS: NICOTINE TRANSD SYS 14 MG/24 HR PATCH TD SCH (09:00)
[2021-03-18] MEDS: PANTOPRAZOLE 40 MG TABEC PO SCH (09:07)
[2021-03-18] MEDS: metFORMIN 850 MG TAB PO SCH ×2 (09:07→16:39)
--- NOTE | 2021-03-18 09:33 | NUR ---
PATIENT REFUSED SCHEDULED NICOTINE PATCH. COULD NOT REASSESS LAST NICOTINE PATCH SINCE IT WAS NOT PLACED ON RIGHT ARM IT WAS COMMENTED ON LAST ADMINISTRATION. PATIENT STATED THAT HE DID NOT RECEIVE THE PATCH YESTERDAY.
--- NOTE | 2021-03-18 11:55 | NUR ---
BLOOD GLUCOSE CHECK IS 122. NO INSULIN COVERAGE NEEDED.
--- NOTE | 2021-03-18 13:30 | NUR ---
MEDICATED PATIENT WITH PAIN MED BEFORE CHANGING DRESSING. PACKED WOUND WITH NEW DRESSING AND COVERED WITH ABDOMINAL PAD. KEPT PATIENT DRY AND CLEAN. PT TOLERATED TREATMENT
--- NOTE | 2021-03-18 13:51 | NUR ---
ALL SCHEDULED MEDS GIVEN. PT IS STABLE. NO DISTRESS NOTED. WILL CONTINUE TO MONITOR.
--- NOTE | 2021-03-18 15:00 | NUR ---
CHECKED ON PATIENT. PATIENT IS STABLE. NO DISTRESS NOTED AND DENIES PAIN AT THE MOMENT. WILL CONTINUE TO MONITOR.
[2021-03-18 16:00] VITALS: BP 112/69
--- NOTE | 2021-03-18 16:42 | NUR ---
BLOOD GLUCOSE CHECK IS 101. NO INSULIN COVERAGE NEEDED.
--- NOTE | 2021-03-18 17:15 | NUR ---
CHECKED ON PATIENT. PATIENT IS STABLE. NO DISTRESS NOTED AND DENIES PAIN AT THE MOMENT. WILL CONTINUE TO MONITOR.
--- NOTE | 2021-03-18 19:08 | NUR ---
ENDORSED TO IT SYSTEMS ANALYST NURSE FOR CONTINUITY OF CARE. PT IS STABLE.
--- NOTE | 2021-03-18 20:00 | NUR ---
RECEIVED PATIENT AWAKE AND COHERENT STANDING BY HIS IV POLE JUST USED THE BATHROOM TO PEE, REPORTED CLEAR YELLOW URINE WITH NORMAL/ADEQUATE AMOUNT, DENIES DISCOMFORT ON VOIDING.
--- NOTE | 2021-03-18 21:00 | NUR ---
PATIENT C/O PAIN 01/15, MEDICATED WITH NORCO 5/325 MG/TAB, HEPARIN 5,000 SQ INJECTION WAS GIVEN BS= 135 MG/DL NEED NO INSULIN COVERAGE. NOTED
--- NOTE | 2021-03-18 21:30 | NUR ---
ZOSYN 3.375 IV WAS GIVEN PIGGY BACK, INFUSING WELL, TOLERATED WELL BY THE PATIENT
--- NOTE | 2021-03-18 22:00 | NUR ---
PATIENT WAS IN BED TRYING T GET TO SLEEP, DENIES ANY PAIN AT THIS TIME.
[2021-03-18] MEDS: HYDROcodone/APAP 5/325 MG 1 TAB TAB PO PRN (22:30)
[2021-03-19] VITALS: BP 110/69
--- NOTE | 2021-03-19 | NUR ---
PATIENT WAS IN BED ASLEEP, NO S/S OF DISTRESS.
[2021-03-19] MEDS: NACL 0.9% 1,000 ML IV SCH (02:30)
--- NOTE | 2021-03-19 02:30 | NUR ---
IV HYDRATION NSS AT 100 ML/HOUR, BAG WAS REPLACED WITH A NEW ONE SAME RATE, INFUSING WELL, TOLERATED BY THE PATIENT WELL
[2021-03-19] MEDS: LACTATED RINGERS 1,000 ML IV SCH (03:20)
[2021-03-19] MEDS: PIPERACILLIN/TAZOBACTAM 3.375 GM in DEXTROSE 5% 50 ML IV SCH (04:34)
[2021-03-19] MEDS: BLOOD GLUCOSE MONITORING 1 DEV DEV FS SCH (07:22)
--- NOTE | 2021-03-19 07:26 | NUR ---
ALL REPORTS WERE GIVEN, TRANSFER OF CARE ENDORSED.
[2021-03-19] MEDS: NICOTINE TRANSD SYS 14 MG/24 HR PATCH TD SCH (09:00)
--- NOTE | 2021-03-19 09:30 | NUR ---
WOUND CARE EVALUATION NOTE: S/P I&D RIGHT BUTTOCK WOUND ASSESSMENT AND WOUND CARE TEACHING DONE TO THIS 50 Y/O MALE. PT IS AAX4. PER PT. HE ALREADY HAS APPOINTMENT MADE STARTING TOMORROW AT [facility] FOR DAILY WOUND CARE. POC DISCUSSED WITH PRIMARY RN, PT AND DR. JAMES. PT. VERBALIZES UNDERSTANDING. -RIGHT BUTTOCK PROXIMAL SURGICAL WOUND [id number] WOUND BED 100% GRANULATING,IRREGULAR WOUND SHAPE. SMALL AMOUNT SEROSANGUINEOUS DRAINAGE, NO ODOR,WOUND EDGE ATTACHED, CHARLES-WOUND SKIN INTACT, TUNNEL WOUND TOWARD 6 0'CLOCK DIRECTION, PAIN 1/10 -RIGHT BUTTOCK DISTAL SURGICAL WOUND CLOSE TO CHARLES-ANAL [id number] WOUND BED 100% GRANULATING,SMALL AMOUNT SEROSANGUINEOUS DRAINAGE, NO ODOR, WOUND EDGE ATTACHED, CHARLES-WOUND SKIN INTACT, TUNNEL WOUND TOWARD 3 0'CLOCK DIRECTION, PAIN 1/10 RECOMMENDATIONS: -CLEANSE RIGHT BUTTOCK WOUNDS WITH NS, PAT DRY, PACK WOUNDS WITH OIL EMULSION DRESSING LOOSELY, COVER WITH ABD PAD DRESSING AND SECURED WITH TAPE QD AND PRN IF SOILING. -KEEP AREA DRY AND CLEAN AND OFFLOADING, NO PROLONG SITTING, NO BATH.
[2021-03-19] MEDS: PANTOPRAZOLE 40 MG TABEC PO SCH (09:55)
[2021-03-19] MEDS ORDERED: LISI5TAB18 PO (09:57)
[2021-03-19] MEDS ORDERED: ATOR20TA PO (09:57)
[2021-03-19] MEDS ORDERED: METF850T PO (09:57)
[2021-03-19] MEDS: metFORMIN 850 MG TAB PO SCH (09:59)
[2021-03-19 11:05] VITALS: BP 129/74
[2021-03-19 11:11] VITALS: BP 129/74
[2021-03-20] MEDS ORDERED: GAUZE TP SCH (13:00)
== END 2021-03-19 11:45 | disposition home or self-care (01) | DRG 720 ==
LOC: MED 10:24 → MTU 15:39
PROVIDERS: ADMIT Hospitalist; ATTEND Hospitalist
PROC: 05H633Z Insertion of Infusion Device into Left Subclavian Vein, Percutaneous Approach (ICD-10-PCS; 2021-03-15)
PROC: 0JB90ZZ Excision of Buttock Subcutaneous Tissue and Fascia, Open Approach (ICD-10-PCS; principal; 2021-03-15 07:30)
PROC: 05PYX3Z Removal of Infusion Device from Upper Vein, External Approach (ICD-10-PCS; 2021-03-15 07:30)
DX: A41.9 Sepsis, unspecified organism (principal); E11.00 Type 2 diabetes mellitus with hyperosmolarity without nonketotic hyperglycemic-hyperosmolar coma (NKHHC); M72.6 Necrotizing fasciitis; L02.31 Cutaneous abscess of buttock; E87.1 Hypo-osmolality and hyponatremia; F12.90 Cannabis use, unspecified, uncomplicated; K61.0 Anal abscess; Z68.34 Body mass index [BMI] 34.0-34.9, adult; B96.1 Klebsiella pneumoniae [K. pneumoniae] as the cause of diseases classified elsewhere; Z87.891 Personal history of nicotine dependence; Z20.822 Contact with and (suspected) exposure to COVID-19; Z88.6 Allergy status to analgesic agent
CPT/HCPCS: 36415; 71045; 72193; 80048; 80053; 80202; 81003; 82948; 83036; 83605; 83735; 84100; 85025; 87040; 87070; 87075; 87081; 87205; 96361; 96365; 99285; A4649; J0330; J1170; J1644; J1815; J2001; J2175; J2270; J2543; J2704; J2710; J3010; J3370; J3490; J7030; J7060; J7120; Q9967